=== PATIENT | male | born 1935 | race Caucasian/White ===

== ENCOUNTER → 2023-03-11 13:00 | Outpatient (BNVA) | payer OTHER, SELFPAY | PROVIDERS: Referring Provider Nurse Practitioner Family; Visit Provider Dermatology | DX: D23.21 Other benign neoplasm of skin of right ear and external auricular canal (principal); D23.22 Other benign neoplasm of skin of left ear and external auricular canal; L82.1 Other seborrheic keratosis; L81.4 Other melanin hyperpigmentation; Z85.828 Personal history of other malignant neoplasm of skin; D48.5 Neoplasm of uncertain behavior of skin; L57.0 Actinic keratosis | CPT/HCPCS: 11102; 17000; 99203 ==

== ENCOUNTER → 2024-03-09 14:29 | Outpatient (BNVA) | payer OTHER, SELFPAY | PROVIDERS: Visit Provider Dermatology | DX: L56.5 Disseminated superficial actinic porokeratosis (DSAP) (principal); D36.13 Benign neoplasm of peripheral nerves and autonomic nervous system of lower limb, including hip; D36.14 Benign neoplasm of peripheral nerves and autonomic nervous system of thorax; L57.0 Actinic keratosis; L82.1 Other seborrheic keratosis; D48.5 Neoplasm of uncertain behavior of skin; S30.860A Insect bite (nonvenomous) of lower back and pelvis, initial encounter; X58.XXXA Exposure to other specified factors, initial encounter; Z85.828 Personal history of other malignant neoplasm of skin | CPT/HCPCS: 11102; 17000; 99213 ==

== ENCOUNTER → 2024-03-31 13:42 | Outpatient (BNVA) | payer OTHER, SELFPAY | PROVIDERS: Visit Provider Dermatology | DX: C44.519 Basal cell carcinoma of skin of other part of trunk (principal) | CPT/HCPCS: 11602; 13101 ==